=== PATIENT | female | born 1950 | race Caucasian/White ===

== ENCOUNTER 2017-01-15 17:36 | Emergency (ER) | payer MEDICARE ==
--- NOTE | 2017-01-15 17:44 | EDM.PDOC ---
ED HPI GENERAL MEDICAL PROBLEM - General Stated Complaint: BLURRED LT EYE VISION Time Seen by Provider: 01/15/17 17:37 Source of Information: Reports: Patient History Limitations: Reports: No Limitations - History of Present Illness INITIAL COMMENTS - FREE TEXT/NARRATIVE: History of present illness: []Patient has had a history of left retinal artery occlusion in February 2016 and had a full workup in [place]. Patient was put on Plavix blood pressure meds and has not had any symptoms since. Patient had episode probably 4 hours prior to arrival where her left eye vision was like a curtain closing on the top half of her vision in the bottom half remains clear. She went to [facility] emergency room who transferred her here for further workup. She was found to be hypertensive with blood pressure 183/99 there and was given aspirin. Her vision came back before she left [facility] stated it was still blurry. Enroute by ambulance she was given labetalol and arrived with a blood pressure of 132/66 with complete resolution of symptoms and clear vision. Review of systems: As per history of present illness and below otherwise all systems reviewed and negative. Past medical history: As per history of present illness and as reviewed below otherwise noncontributory. Surgical history: As per history of present illness and as reviewed below otherwise noncontributory. Social history: No reported history of drug or alcohol abuse. Family history: As per history of present illness and as reviewed below otherwise noncontributory. Physical exam: General: Well developed, well nourished in NAD HEENT: Atraumatic, normocephalic, pupils reactive, negative for conjunctival pallor or scleral icterus, mucous membranes moist, throat clear, neck supple, nontender, trachea midline. Lungs: Clear to auscultation, breath sounds equal bilaterally, chest nontender. Heart: S1S2, regular, negative for clicks, rubs, or JVD. Abdomen: Soft, nondistended, nontender. Negative for masses or hepatosplenomegaly. Negative for costovertebral tenderness. Pelvis: Stable nontender. Genitourinary: Deferred. Rectal: Deferred. Extremities: Atraumatic, negative for cords or calf pain. Neurovascular unremarkable. Neuro: Awake, alert, oriented. Cranial nerves II through XII unremarkable. Cerebellum unremarkable. Motor and sensory unremarkable throughout. Exam nonfocal. Diagnostics: []I consulted regional sales representative Chris Kohli and discussed this case with him, he stated it is necessary to repeat the workup being that she has this diagnosis and that if she is staying locally more than 2 weeks he can follow-up with her in clinic next week. Therapeutics: []Observation Impression: []Transient retinal artery occlusion Plan: []Continue aspirin, Plavix and blood pressure medications up with ophthalmology next week to ER if symptoms worsen or change Definitive disposition and diagnosis as appropriate pending reevaluation and review of above. Neck Pain Score (Numeric/FACES): 2 - Related Data Allergies Allergy/AdvReac Type Severity Reaction Status Date / Time No Known Allergies Allergy Verified 01/15/17 17:42 Home Meds: Home Meds Ascorbate Calcium [Vitamin C] 500 mg PO DAILY 01/15/17 [History] Aspirin 81 mg PO BEDTIME 01/15/17 [History] Cholecalciferol (Vitamin D3) [Vitamin D3] 2,000 unit PO DAILY 01/15/17 [History] Cholecalciferol (Vitamin D3) [Vitamin D] 5,000 unit PO DAILY 01/15/17 [History] Clopidogrel [Plavix] 75 mg PO DAILY 01/15/17 [History] Enalapril/Hydrochlorothiazide [Enalapril-HCTZ 5-12.5 MG] 1 each PO DAILY [History] Furosemide [Lasix] 20 mg PO DAILY 01/15/17 [History] Omeprazole 20 mg PO DAILY 01/15/17 [History] Potassium Bicarbonate [Klor-Con EF] 25 meq PO DAILY 01/15/17 [History] ED ROS GENERAL - Review of Systems Review Of Systems: See Below (See history of present illness) ED EXAM, GENERAL - Physical Exam Exam: See Below (See history of present illness) Course - Vital Signs Last Recorded V/S: Last Vital Signs Temp 36.3 C 01/15/17 17:38 Pulse 62 01/15/17 17:38 Resp 12 01/15/17 17:38 BP 132/66 01/15/17 17:38 Pulse Ox 97 01/15/17 17:38 Departure - Departure Time of Disposition: 19:00 Disposition: Home, Self-Care 01 Condition: Good Clinical Impression: Central retinal artery occlusion of left eye - Discharge Information Instructions: Hypertension, [id number] Referrals: Seun,Chris C, MD [Consulting Physician] - Forms: ED Department Discharge Additional Instructions: The following information is given to patients seen in the emergency department who are being discharged to home. This information is to outline your options for follow-up care. We provide all patients seen in our emergency department with a follow-up referral. The need for follow-up, as well as the timing and circumstances, are variable depending upon the specifics of your emergency department visit. If you don't have a primary care physician on staff, we will provide you with a referral. We always advise you to contact your personal physician following an emergency department visit to inform them of the circumstance of the visit and for follow-up with them and/or the need for any referrals to a consulting specialist. The emergency department will also refer you to a specialist when appropriate. This referral assures that you have the opportunity for follow-up care with a specialist. All of these measure are taken in an effort to provide you with optimal care, which includes your follow-up. Under all circumstances we always encourage you to contact your private physician who remains a resource for coordinating your care. When calling for follow-up care, please make the office aware that this follow-up is from your recent emergency room visit. If for any reason you are refused follow-up, please contact the [facility] Emergency Department at and asked to speak to the emergency department charge nurse. Continue Plavix, aspirin and blood pressure medications. Return to ER if symptoms change or worsen. Follow up with ophthalmology clinic next week. [address] [id number]
[2017-01-15 20:08] VITALS: BP 135/69
== END 2017-01-15 19:20 | disposition home or self-care (01) ==
LOC: MW.ED 17:36
DX: H34.02 Transient retinal artery occlusion, left eye (principal); Z79.82 Long term (current) use of aspirin; Z79.899 Other long term (current) drug therapy
CPT/HCPCS: 99283; 99284